=== PATIENT | male | born 1935 | race Caucasian/White ===

== ENCOUNTER 2018-02-21 06:35 | Day surgery (SDC) | payer MEDICARE, BC ==
[2018-02-21] MEDS ORDERED: Lactated Ringers 1,000 ML IV SCH (07:00)
[2018-02-21] MEDS ORDERED: Midazolam 1 MG/ML 2 ML SDV IV ONE (08:00)
[2018-02-21] MEDS ORDERED: Propofol 200 MG/20 ML SDV IV ONE (08:00)
--- NOTE | 2018-02-21 08:31 | PCM.HP ---
H&P History of Present Illness - General Date of Service: 02/21/18 Admit Problem/Dx: Admission Diagnosis/Problem Admission Diagnosis/Problem Colonoscopy Source of Information: Patient, Old Records History Limitations: Reports: No Limitations - History of Present Illness Initial Comments - Free Text/Narative: Here for colonoscopy for history of polyps - Related Data Allergies/Adverse Reactions: Allergies Allergy/AdvReac Type Severity Reaction Status Date / Time Penicillins Allergy Hives Verified 02/20/18 15:06 Home Medications: Home Meds Acetaminophen [Tylenol] 650 mg PO Q6H PRN 02/21/18 [History] Carboxymethylcellulose Sodium [Refresh Tears 0.5%] 1 drop EYEBOTH BID 02/21/18 [ History] Richards Flavor [Richards Concentrate] 1 cap PO DAILY 02/21/18 [History] Etodolac 400 mg PO BID 02/21/18 [History] Hydrochlorothiazide 25 mg PO DAILY 02/21/18 [History] Labetalol HCl [Labetalol] 200 mg PO BID 02/21/18 [History] Multivitamin [One Daily] 1 ea PO DAILY 02/21/18 [History] Omeprazole Magnesium [Prilosec Otc] 20 mg PO DAILY 02/21/18 [History] Tamsulosin [Flomax] 0.4 mg PO DAILY 02/21/18 [History] amLODIPine Besylate [Norvasc] 5 mg PO DAILY 02/21/18 [History] Past Medical History HEENT History: Reports: Glaucoma, Impaired Vision Cardiovascular History: Reports: High Cholesterol, Hypertension Respiratory History: Reports: None Gastrointestinal History: Reports: Colon Polyp, GERD Genitourinary History: Reports: BPH 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 Musculoskeletal History: Reports: Gout, Other (See Below) Other Musculoskeletal History: DJD OF ACROMIOCLAVICULAR JOINT; SHOULDER IMPINGEMENT SYNDROME, RIGHT Neurological History: Reports: None Psychiatric History: Reports: None Endocrine/Metabolic History: Reports: None Hematologic History: Reports: None Immunologic History: Reports: None Oncologic (Cancer) History: Reports: None Dermatologic History: Reports: None - Infectious Disease History Infectious Disease History: Reports: Mumps - Past Surgical History Head Surgeries/Procedures: Reports: None GI Surgical History: Reports: Colonoscopy, EGD Musculoskeletal Surgical History: Reports: Other (See Below) Social & Family History - Family History GI: Reports: None - Tobacco Use Smoking Status *Q: Former Smoker Years of Tobacco use: 20 - Caffeine Use Caffeine Use: Reports: Coffee - Recreational Drug Use Recreational Drug Use: No Drug Use in Last 12 Months: No H&P Review of Systems - Review of Systems: Review Of Systems: See Below Pulmonary: Reports: No Symptoms Cardiovascular: Reports: No Symptoms Gastrointestinal: Reports: No Symptoms Exam - Exam Exam: See Below - Vital Signs Vital Signs: Last Vital Signs Temp 978.4 F H 02/21/18 07:12 Pulse 55 L 02/21/18 07:12 Resp 18 02/21/18 07:12 BP 149/65 H 02/21/18 07:12 Pulse Ox 98 02/21/18 07:12 Weight: 111.13 kg - Exam General: Alert, Oriented Lungs: Clear to Auscultation, Normal Respiratory Effort Cardiovascular: Regular Rate, Regular Rhythm GI/Abdominal Exam: Soft, Non-Tender Problem List Initiated/Reviewed/Updated: Yes Orders Last 24hrs: Active Orders 24 hr Category Date Time Status Patient Status [ADT] Routine ADT 02/21/18 06:51 Active Patient to Empty Bladder [RC] ASDIRECTED Care 02/21/18 06:51 Active Verify Patient Consent Obtain [RC] ASDIRECTED Care 02/21/18 06:51 Active Nothing Per Oral Diet [DIET] Diet 02/21/18 Breakfast Ordered Lactated Ringers [Ringers, Lactated] 1,000 ml Med 02/21/18 07:00 Active IV ASDIRECTED Peripheral IV Insertion Adult [OM.PC] Routine Oth 02/21/18 06:51 Ordered Resuscitation Status Routine Resus Stat 02/21/18 06:51 Ordered Medication Orders Lactated Ringer's (Ringers, Lactated) 1,000 mls @ 125 mls/hr IV ASDIRECTED YESI Assessment/Plan Comment:: A) Hx Colon Polyps P) Ok to proceed with colonoscopy
--- NOTE | 2018-02-21 08:32 | PCM.OPNOTE ---
- General Post-Op/Procedure Note Date of Surgery/Procedure: 02/21/18 Operative Procedure(s): Colonoscopy Findings: Diverticulosis Pre Op Diagnosis: Hx Colon Polyps Post-Op Diagnosis: Same Anesthesia Technique: MAC Primary Surgeon: Jonah Smith Complications: None Condition: Good
--- NOTE | 2018-02-21 12:42 | OR ---
DATE OF OPERATION: 02/21/2018 SURGEON: Jonah Smith MD PREOPERATIVE DIAGNOSIS: History of colon polyps. POSTOPERATIVE DIAGNOSIS: Diverticulosis. PROCEDURE: Colonoscopy. ANESTHESIA: IV sedation. PROCEDURE IN DETAIL: The patient was brought to the procedure room, where he was placed on his left side and IV sedation administered. Digital rectal exam was performed, which was normal. Colonoscope was inserted and advanced to the level of the cecum without difficulty. Cecal position was confirmed by identifying the appendiceal lumen and the ileocecal valve. Prep was good and surfaces were well visualized. Upon withdrawing the scope, the ascending, transverse, and descending colon had a few scattered diverticula throughout. Sigmoid colon had multiple diverticula present. No polyps were seen. Rectum was normal and retroflexion was normal. Air was removed and the scope withdrawn. The patient tolerated the procedure well and returned to recovery in stable condition. No routine colon screening is required any longer because of his age. /[id number] TIFF/LAYO
== END 2018-02-21 09:40 | disposition home or self-care (01) ==
LOC: FB.SDS 06:35
PROVIDERS: ATTEND Surgery
DX: K57.30 Diverticulosis of large intestine without perforation or abscess without bleeding (principal); E78.00 Pure hypercholesterolemia, unspecified; I10 Essential (primary) hypertension; K21.9 Gastro-esophageal reflux disease without esophagitis; N40.0 Benign prostatic hyperplasia without lower urinary tract symptoms; M19.011 Primary osteoarthritis, right shoulder; M10.9 Gout, unspecified; E66.9 Obesity, unspecified; Z79.899 Other long term (current) drug therapy; Z88.0 Allergy status to penicillin; Z98.890 Other specified postprocedural states; Z87.891 Personal history of nicotine dependence
CPT/HCPCS: 00812; 45378; J2250; J2704; J7120

== ENCOUNTER 2019-02-14 09:52 | Inpatient (IN) | payer MEDICARE, BC ==
[2019-02-14] MEDS ORDERED: Lactated Ringers 1,000 ML IV ONE (10:00)
[2019-02-14] MEDS ORDERED: ceFAZolin 1 GM Vial IV ONE (10:00)
[2019-02-14] MEDS ORDERED: Ketorolac 30 MG/ML SDV IVPUSH ONE ×2 (10:00→20:33)
[2019-02-14] MEDS ORDERED: Succinylcholine 200 MG/10 ML MDV IV ONE (10:00)
[2019-02-14] MEDS ORDERED: Midazolam 1 MG/ML 2 ML SDV IV ONE (10:00)
[2019-02-14] MEDS ORDERED: Ondansetron 4 MG/2 ML SDV IVPUSH ONE (10:00)
[2019-02-14] MEDS ORDERED: Neostigmine Methylsulfate 10 MG/10 ML MDV IVPUSH ONE (10:00)
[2019-02-14] MEDS ORDERED: fentaNYL 100 MCG/2 ML SDV IV ONE (10:00)
[2019-02-14] MEDS ORDERED: Propofol 200 MG/20 ML SDV IV ONE (10:00)
[2019-02-14] MEDS ORDERED: Rocuronium 100 MG/10 ML MDV IV ONE (10:00)
[2019-02-14] MEDS ORDERED: Sugammadex Sodium 200 MG/2 ML VIAL IV ONE (10:00)
[2019-02-14] MEDS ORDERED: Glycopyrrolate 0.2 MG/ML 5 ML MDV IV ONE (10:00)
[2019-02-14] MEDS ORDERED: HYDROmorphone 2 MG/ML SDV IV ONE (10:00)
[2019-02-14] MEDS: Lactated Ringers 1,000 ML IV SCH ×2 (10:48→15:23)
[2019-02-14] MEDS ORDERED: metroNIDAZOLE/Normal Saline 100 ML IV ONE (13:00)
[2019-02-14] MEDS ORDERED: Ciprofloxacin in D5W 200 ML IV ONE (13:00)
--- NOTE | 2019-02-14 14:25 | PCM.OPNOTE ---
- General Post-Op/Procedure Note Date of Surgery/Procedure: 02/14/19 Operative Procedure(s): Lap to Open Josi Findings: Acute Cholecystitis and Cholelithiasis Pre Op Diagnosis: Same Post-Op Diagnosis: Same Anesthesia Technique: General ET Tube Primary Surgeon: Jonah Smith Anesthesia Provider: Michelle Baltazar Special Education Para Professional: Surjit Mota EBL in mLs: 250 Surgical Drain/Tube Type: Gallo Christine Round Drain Complications: None Condition: Good
[2019-02-14] MEDS: Morphine 2 MG/ML Syringe IVPUSH PRN ×5 (16:27→22:55)
--- NOTE | 2019-02-14 18:03 | OR ---
DATE OF OPERATION: 02/14/2019 SURGEON: Jonah Smith MD PREOPERATIVE DIAGNOSES: Acute cholecystitis and cholelithiasis. POSTOPERATIVE DIAGNOSES: Acute cholecystitis and cholelithiasis with Adhesions. PROCEDURE: Attempted laparoscopic converted to open cholecystectomy with Adhesiolysis. ELEMENT WINDING MACHINE TENDER: Surjit Mota MD ANESTHESIA: General. PROCEDURE IN DETAIL: The patient was brought to the operating room where general endotracheal anesthesia was administered. The abdomen was prepped with ChloraPrep and draped sterilely. An infraumbilical incision was made and extended into the peritoneal cavity without difficulty. The Noé cannula later was introduced and pneumoperitoneum obtained. The remaining three 5 mm ports were placed in the usual positions. The patient was placed in reverse Trendelenburg position and rotated to his left. The gallbladder was densely covered with omentum and this was taken down with blunt dissection with minimal oozing. It took over 20 minutes to expose the gallbladder. The gallbladder was firm and could not be grasped well, so this was decompressed with a needle and trocar. Yellowish thick bile (80 ml) was obtained and sent for culture. The gallbladder was grasped and retracted cephalad. Tedious dissection was undertaken to identify the base of the gallbladder which was very thick and densely covered with a thickened peritoneum. I was able to isolate the cystic artery which was doubly clipped proximally and once distally and then transected. I could work around the base of the gallbladder, but was unable to define any structure. At that time, I decided to open. Dr. Surjit Mota came into assist at that point. A right subcostal incision was made and extended through the rectus muscle into the peritoneal cavity. Pinon retractor system was used for retraction. The gallbladder was grasped and electrocautery used to dissect from the top down. Some oozing occurred in liver bed that was controlled with electrocautery. As I got to the base of the gallbladder, it was firm and again structures were not clearly identified. Therefore, I decided to open the gallbladder and many small gallstones were removed. By extending the incision down to the neck of the gallbladder, there was not a patent cystic duct that could be identified. Therefore, the gallbladder was transected at the level of the base. There were 2 small blood vessels clamped and tied with 0 Vicryl at that level. The remnant neck of the gallbladder was oversewn with [id number] 2-0 Vicryl. There was no bile seen during any portion of the procedure. Hemostasis was assured. The wound was thoroughly irrigated. All stones that had spilled were removed. A 0.25- inch round Davol drain was brought out through the right lateral incision and secured to the skin with silk and tucked in the bed of the liver adjacent to the gallbladder stump. The wound was closed and each rectus muscle layer was closed with running #1 Vicryl. The skin was closed with roque. Umbilical fascia was closed with [id number] #0 Vicryl and skin closed with roque. Sterile dressings were applied. The patient tolerated the procedure well. Estimated blood loss 250 mL. He returned to postanesthesia in stable condition. Cultures were obtained. /[id number] TIFF/LAYO MTDD
[2019-02-14] MEDS: metroNIDAZOLE/Normal Saline 500 MG in Premix Bag 1 BAG IV SCH (22:54)
[2019-02-14] MEDS ORDERED: Lidocaine 2% Jelly 30 ML Tube MUCMEM SCH (23:40)
[2019-02-15] MEDS: Lactated Ringers 1,000 ML IV SCH ×5 (00:03→18:23)
[2019-02-15] MEDS ORDERED: Lidocaine 2% HCl 6 ML JEL.PF.APP ONE (00:07)
[2019-02-15] MEDS: Ciprofloxacin in D5W 400 MG in Premix Bag 1 BAG IV SCH ×4 (00:24→14:39)
[2019-02-15] MEDS: Morphine 2 MG/ML Syringe IVPUSH PRN ×7 (01:07→20:31)
[2019-02-15] MEDS: Ketorolac 30 MG/ML SDV IVPUSH SCH ×4 (03:05→22:01)
[2019-02-15] MEDS: metroNIDAZOLE/Normal Saline 500 MG in Premix Bag 1 BAG IV SCH ×3 (05:15→22:57)
--- NOTE | 2019-02-15 07:58 | PCM.PN ---
- General Info Date of Service: 02/15/19 Admission Dx/Problem (Free Text): Cholecystectomy - Review of Systems Systems Review Comment:: Complains of pain at drain site but otherwise pain mild Has had difficulty voiding and unable to place christensen - patient has voided in small amounts during the night - Patient Data Vitals - Most Recent: Last Vital Signs Temp 98 F 02/15/19 03:15 Pulse 57 L 02/15/19 03:15 Resp 20 02/15/19 03:15 BP 143/69 H 02/15/19 03:15 Pulse Ox 95 02/15/19 03:15 Weight - Most Recent: 231 lb I&O - Last 24 Hours: Intake & Output 02/14/19 02/15/19 02/15/19 22:59 06:59 14:59 Output Total 37 290 Balance -37 -290 Lab Results Last 24 Hours: Laboratory Results - last 24 hr 02/15/19 02/15/19 Range/Units 06:18 06:18 WBC 6.0 (4.5-12.0) X10-3/uL RBC 3.59 L (4.30-5.75) x10(6)uL Hgb 11.9 L (13.5-17.8) g/dL Hct 33.5 (30.0-51.3) % MCV 93.5 (80-96) fL MCH 33.1 (27.7-33.6) pg MCHC 35.3 (32.2-35.4) g/dL RDW 12.2 (11.5-15.5) % Plt Count 275 (125-369) X10(3)uL MPV 7.2 L (7.4-10.4) fL Neut % (Auto) 65.3 (46-82) % Lymph % (Auto) 21.3 (13-37) % [place] % (Auto) 11.0 (4-12) % Eos % (Auto) 2 (1.0-5.0) % Baso % (Auto) 1 (0-2) % Neut # (Auto) 3.9 (1.6-8.3) # Lymph # (Auto) 1.3 (0.6-5.0) # [place] # (Auto) 0.7 (0.0-1.3) # Eos # (Auto) 0.1 (0.0-0.8) # Baso # (Auto) 0.0 (0.0-0.2) # Sodium 140 (135-145) mmol/L Potassium 4.6 (3.5-5.3) mmol/L Chloride 104 (100-110) mmol/L Carbon Dioxide 30 (21-32) mmol/L BUN 22 H (7-18) mg/dL Creatinine 1.4 H (0.70-1.30) mg/dL Est Cr Clr Drug Dosing 43.88 mL/min Estimated GFR (MDRD) 48 L (>60) BUN/Creatinine Ratio 15.7 (9-20) Glucose 113 (80-116) mg/dL Calcium 8.5 L (8.6-10.2) mg/dL Total Bilirubin 0.7 (0.1-1.3) mg/dL AST 48 H (5-25) IU/L ALT 83 H (12-36) U/L Alkaline Phosphatase 148 H (56-112) IU/L Total Protein 6.2 (6.0-8.0) g/dL Albumin 2.9 L (3.2-4.6) g/dL Globulin 3.3 g/dL Albumin/Globulin Ratio 0.9 Lei Results Last 24 Hours: Microbiology 02/14/19 12:20 Gram Stain - Final Gallbladder Med Orders - Current: Current Medications Hydrocodone Bitart/Acetaminophen ([place] 325-5 Mg) 1 tab PO Q4H PRN PRN Reason: Pain (mild 1-3) Enoxaparin Sodium (Lovenox) 0 mg SUBCUT Q24H [facility] Lactated Ringer's (Ringers, Lactated) 1,000 mls @ 125 mls/hr IV ASDIRECTED [facility] Last Infusion: 02/14/19 18:48 Dose: Infused Lactated Ringer's (Ringers, Lactated) 1,000 mls @ 125 mls/hr IV ASDIRECTED [facility] Last Infusion: 02/15/19 07:01 Dose: 500 mls/hr Ciprofloxacin/Dextrose 400 mg/ (Premix) 200 mls @ 200 mls/hr IV Q12H [facility] Last Admin: 02/15/19 00:24 Dose: 200 mls/hr Metronidazole 500 mg/ Premix 100 mls @ 100 mls/hr IV Q8H [facility] Last Admin: 02/15/19 05:15 Dose: 100 mls/hr Ketorolac Tromethamine (Toradol) 30 mg IVPUSH Q6H YESI Stop: 02/19/19 21:46 Last Admin: 02/15/19 03:05 Dose: 30 mg Lidocaine HCl (Xylocaine 2% Jelly) 6 ml MUCMEM ASDIRECTED YESI Stop: 02/15/19 23:41 Morphine Sulfate (Morphine) 2 mg IVPUSH Q1H PRN PRN Reason: Abdominal Pain Last Admin: 02/15/19 05:14 Dose: 2 mg Discontinued Medications Ketorolac Tromethamine (Toradol) 30 mg IVPUSH ONETIME ONE Stop: 02/14/19 20:34 Last Admin: 02/14/19 20:40 Dose: 30 mg Lidocaine HCl (Glydo) Confirm Administered Dose 6 ml .ROUTE .STK-MED ONE Stop: 02/15/19 00:08 Last Admin: 02/14/19 23:40 Dose: 12 ml - Problem List Review Problem List Initiated/Reviewed/Updated: Yes - Assessment Assessment:: POD#1 open cholecystectomy urinary retention - Plan Plan:: encouraged ambulation - will observe
[2019-02-15] MEDS: Acetaminophen/HYDROcodone 325-5 MG Tab PO PRN ×3 (08:20→23:01)
[2019-02-15] MEDS: Enoxaparin 40 MG/0.4 ML Syringe SUBCUT SCH (11:40)
[2019-02-16] MEDS: Ciprofloxacin in D5W 400 MG in Premix Bag 1 BAG IV SCH ×4 (01:58→13:10)
[2019-02-16] MEDS: Ketorolac 30 MG/ML SDV IVPUSH SCH ×4 (03:18→21:21)
[2019-02-16] MEDS: Lactated Ringers 1,000 ML IV SCH ×2 (04:36→17:06)
[2019-02-16] MEDS: Acetaminophen/HYDROcodone 325-5 MG Tab PO PRN ×3 (04:57→21:34)
[2019-02-16] MEDS: metroNIDAZOLE/Normal Saline 500 MG in Premix Bag 1 BAG IV SCH ×3 (06:24→23:00)
--- NOTE | 2019-02-16 08:44 | PCM.SURGPN ---
- General Info Date of Service: 02/16/19 POD#: 2 Functional Status: Reports: Pain Controlled, Ambulating, Urinating - Review of Systems General: Reports: No Symptoms Pulmonary: Reports: No Symptoms Cardiovascular: Reports: No Symptoms Gastrointestinal: Denies: Flatus - Patient Data Vitals - Most Recent: Last Vital Signs Temp 98.1 F 02/16/19 05:00 Pulse 66 02/16/19 05:00 Resp 20 02/16/19 05:00 BP 133/66 02/16/19 05:00 Pulse Ox 93 L 02/16/19 05:00 Weight - Most Recent: 104.78 kg I&O - Last 24 Hours: Intake & Output 02/15/19 02/16/19 02/16/19 22:59 06:59 14:59 Intake Total 730 300 Output Total 380 675 40 Balance 350 -375 -40 Lei Results Last 24 Hrs: Microbiology 02/14/19 12:20 Gram Stain - Final Gallbladder Routine Culture - Preliminary NO GROWTH AFTER 1 DAY Med Orders - Current: Current Medications Hydrocodone Bitart/Acetaminophen ([place] 325-5 Mg) 1 tab PO Q4H PRN PRN Reason: Pain (mild 1-3) Last Admin: 02/16/19 04:57 Dose: 1 tab Enoxaparin Sodium (Lovenox) 40 mg SUBCUT DAILY [facility] Last Admin: 02/15/19 11:40 Dose: 40 mg Lactated Ringer's (Ringers, Lactated) 1,000 mls @ 125 mls/hr IV ASDIRECTED [facility] Last Admin: 02/16/19 04:36 Dose: 125 mls/hr Lactated Ringer's (Ringers, Lactated) 1,000 mls @ 125 mls/hr IV ASDIRECTED [facility] Last Infusion: 02/15/19 07:01 Dose: 500 mls/hr Ciprofloxacin/Dextrose 400 mg/ (Premix) 200 mls @ 200 mls/hr IV Q12H [facility] Last Admin: 02/16/19 01:58 Dose: 200 mls/hr Metronidazole 500 mg/ Premix 100 mls @ 100 mls/hr IV Q8H [facility] Last Admin: 02/16/19 06:24 Dose: 100 mls/hr Ketorolac Tromethamine (Toradol) 30 mg IVPUSH Q6H [facility] Stop: 02/19/19 21:46 Last Admin: 02/16/19 03:18 Dose: 30 mg Morphine Sulfate (Morphine) 2 mg IVPUSH Q1H PRN PRN Reason: Abdominal Pain Last Admin: 02/15/19 20:31 Dose: 2 mg Discontinued Medications Ketorolac Tromethamine (Toradol) 30 mg IVPUSH ONETIME ONE Stop: 02/14/19 20:34 Last Admin: 02/14/19 20:40 Dose: 30 mg Lidocaine HCl (Glydo) Confirm Administered Dose 6 ml .ROUTE .STK-MED ONE Stop: 02/15/19 00:08 Last Admin: 02/14/19 23:40 Dose: 12 ml Lidocaine HCl (Xylocaine 2% Jelly) 6 ml MUCMEM ASDIRECTED [facility] Stop: 02/15/19 23:41 - Exam Wound/Incisions: Healing Well, Dressing Dry and Intact, Drainage (serous from [facility] ) Lungs: Clear to Auscultation, Normal Respiratory Effort Cardiovascular: Regular Rate, Regular Rhythm GI/Abdominal Exam: Soft, Non-Tender, Distended - Problem List Review Problem List Initiated/Reviewed/Updated: Yes - My Orders Last 24 Hours: Active Orders 24 hr Category Date Time Status Enoxaparin [Lovenox] Med 02/15/19 10:00 Active 40 mg SUBCUT DAILY Medication Orders Hydrocodone Bitart/Acetaminophen ([place] 325-5 Mg) 1 tab PO Q4H PRN PRN Reason: Pain (mild 1-3) Last Admin: 02/16/19 04:57 Dose: 1 tab Admin: 02/15/19 23:01 Dose: 1 tab Admin: 02/15/19 16:45 Dose: 1 tab Admin: 02/15/19 08:20 Dose: 1 tab Enoxaparin Sodium (Lovenox) 40 mg SUBCUT DAILY [facility] Last Admin: 02/15/19 11:40 Dose: 40 mg Lactated Ringer's (Ringers, Lactated) 1,000 mls @ 125 mls/hr IV ASDIRECTED [facility] Last Admin: 02/16/19 04:36 Dose: 125 mls/hr Infusion: 02/16/19 02:23 Dose: 125 mls/hr Admin: 02/15/19 18:23 Dose: 125 mls/hr Infusion: 02/15/19 16:11 Dose: 125 mls/hr Admin: 02/15/19 08:11 Dose: 125 mls/hr Infusion: 02/14/19 18:48 Dose: 125 mls/hr Admin: 02/14/19 10:48 Dose: 125 mls/hr Lactated Ringer's (Ringers, Lactated) 1,000 mls @ 125 mls/hr IV ASDIRECTED [facility] Last Infusion: 02/15/19 07:01 Dose: 500 mls/hr Admin: 02/15/19 03:08 Dose: 125 mls/hr Infusion: 02/15/19 01:05 Dose: 75 mls/hr Admin: 02/15/19 00:06 Dose: 125 mls/hr Infusion: 02/14/19 23:23 Dose: 125 mls/hr Admin: 02/14/19 15:23 Dose: 125 mls/hr Ciprofloxacin/Dextrose 400 mg/ (Premix) 200 mls @ 200 mls/hr IV Q12H [facility] Last Admin: 02/16/19 01:58 Dose: 200 mls/hr Infusion: 02/15/19 15:39 Dose: 200 mls/hr Admin: 02/15/19 14:39 Dose: 200 mls/hr Infusion: 02/15/19 01:24 Dose: 200 mls/hr Admin: 02/15/19 00:24 Dose: 200 mls/hr Metronidazole 500 mg/ Premix 100 mls @ 100 mls/hr IV Q8H [facility] Last Admin: 02/16/19 06:24 Dose: 100 mls/hr Infusion: 02/15/19 23:57 Dose: 100 mls/hr Admin: 02/15/19 22:57 Dose: 100 mls/hr Infusion: 02/15/19 16:49 Dose: 100 mls/hr Admin: 02/15/19 15:49 Dose: 100 mls/hr Infusion: 02/15/19 06:15 Dose: 100 mls/hr Admin: 02/15/19 05:15 Dose: 100 mls/hr Infusion: 02/14/19 23:54 Dose: 100 mls/hr Admin: 02/14/19 22:54 Dose: 100 mls/hr Ketorolac Tromethamine (Toradol) 30 mg IVPUSH Q6H [facility] Stop: 02/19/19 21:46 Last Admin: 02/16/19 03:18 Dose: 30 mg Admin: 02/15/19 22:01 Dose: 30 mg Admin: 02/15/19 14:45 Dose: 30 mg Admin: 02/15/19 08:22 Dose: 30 mg Admin: 02/15/19 03:05 Dose: 30 mg Morphine Sulfate (Morphine) 2 mg IVPUSH Q1H PRN PRN Reason: Abdominal Pain Last Admin: 02/15/19 20:31 Dose: 2 mg Admin: 02/15/19 16:46 Dose: 2 mg Admin: 02/15/19 11:39 Dose: 2 mg Admin: 02/15/19 08:26 Dose: 2 mg Admin: 02/15/19 05:14 Dose: 2 mg Admin: 02/15/19 04:13 Dose: 2 mg Admin: 02/15/19 01:07 Dose: 2 mg Admin: 02/14/19 22:55 Dose: 2 mg Admin: 02/14/19 21:40 Dose: 2 mg Admin: 02/14/19 19:58 Dose: 2 mg Admin: 02/14/19 18:34 Dose: 2 mg Admin: 02/14/19 16:27 Dose: 2 mg - Assessment Assessment (Free Text/Narrative):: Doing well; post op ileus - Plan Plan (Free Text/Narrative):: Cont as is
[2019-02-16] MEDS ORDERED: Morphine 2 MG/ML Syringe IVPUSH PRN (08:46)
[2019-02-16] MEDS: Enoxaparin 40 MG/0.4 ML Syringe SUBCUT SCH (09:08)
[2019-02-17] MEDS: Ciprofloxacin in D5W 400 MG in Premix Bag 1 BAG IV SCH ×4 (00:47→13:16)
[2019-02-17] MEDS ORDERED: Promethazine 12.5 MG in Sodium Chloride 0.9% 50 ML IV PRN (02:23)
[2019-02-17] MEDS ORDERED: Sodium Chloride 0.9% 500 ML IV ONE (02:26)
[2019-02-17] MEDS: Ketorolac 30 MG/ML SDV IVPUSH SCH ×4 (03:05→21:37)
[2019-02-17] MEDS: metroNIDAZOLE/Normal Saline 500 MG in Premix Bag 1 BAG IV SCH ×3 (06:28→21:38)
[2019-02-17] MEDS: Lactated Ringers 1,000 ML IV SCH ×2 (06:30→19:03)
[2019-02-17] MEDS: Enoxaparin 40 MG/0.4 ML Syringe SUBCUT SCH (08:26)
[2019-02-17] MEDS ORDERED: Ondansetron 4 MG/2 ML SDV IVPUSH PRN (11:22)
--- NOTE | 2019-02-17 11:26 | PCM.SURGPN ---
- General Info Date of Service: 02/17/19 POD#: 3 Functional Status: Reports: Pain Controlled, Ambulating, Urinating - Review of Systems Gastrointestinal: Reports: Nausea, Vomiting Genitourinary: Reports: No Symptoms - Patient Data Vitals - Most Recent: Last Vital Signs Temp 97.7 F 02/17/19 05:23 Pulse 86 02/17/19 05:23 Resp 20 02/17/19 05:23 BP 133/81 02/17/19 05:23 Pulse Ox 95 02/17/19 05:23 Weight - Most Recent: 104.78 kg I&O - Last 24 Hours: Intake & Output 02/16/19 02/17/19 02/17/19 22:59 06:59 14:59 Intake Total 900 1500 Output Total 150 450 450 Balance 750 1050 -450 Lab Results Last 24 Hrs: Laboratory Results - last 24 hr 02/17/19 02/17/19 Range/Units 06:20 06:20 WBC 5.9 (4.5-12.0) X10-3/uL RBC 3.80 L (4.30-5.75) x10(6)uL Hgb 12.3 L (13.5-17.8) g/dL Hct 35.3 (30.0-51.3) % MCV 93.1 (80-96) fL MCH 32.3 (27.7-33.6) pg MCHC 34.7 (32.2-35.4) g/dL RDW 11.9 (11.5-15.5) % Plt Count 294 (125-369) X10(3)uL MPV 7.7 (7.4-10.4) fL Neut % (Auto) 65.2 (46-82) % Lymph % (Auto) 18.3 (13-37) % [place] % (Auto) 13.0 H (4-12) % Eos % (Auto) 3 (1.0-5.0) % Baso % (Auto) 0 (0-2) % Neut # (Auto) 3.8 (1.6-8.3) # Lymph # (Auto) 1.1 (0.6-5.0) # [place] # (Auto) 0.8 (0.0-1.3) # Eos # (Auto) 0.2 (0.0-0.8) # Baso # (Auto) 0.0 (0.0-0.2) # Sodium 138 (135-145) mmol/L Potassium 4.0 (3.5-5.3) mmol/L Chloride 99 L D (100-110) mmol/L Carbon Dioxide 32 (21-32) mmol/L BUN 22 H (7-18) mg/dL Creatinine 1.3 (0.70-1.30) mg/dL Est Cr Clr Drug Dosing 47.26 mL/min Estimated GFR (MDRD) 53 L (>60) BUN/Creatinine Ratio 16.9 (9-20) Glucose 116 (80-116) mg/dL Calcium 8.9 (8.6-10.2) mg/dL Total Bilirubin 0.7 (0.1-1.3) mg/dL AST 39 H D (5-25) IU/L ALT 58 H D (12-36) U/L Alkaline Phosphatase 123 H (56-112) IU/L Total Protein 6.7 (6.0-8.0) g/dL Albumin 2.9 L (3.2-4.6) g/dL Globulin 3.8 g/dL Albumin/Globulin Ratio 0.8 Lei Results Last 24 Hrs: Microbiology 02/14/19 12:20 Gram Stain - Final Gallbladder Routine Culture - Preliminary Gram Positive Cocci Med Orders - Current: Current Medications Hydrocodone Bitart/Acetaminophen ([place] 325-5 Mg) 1 tab PO Q4H PRN PRN Reason: Pain (mild 1-3) Last Admin: 02/16/19 21:34 Dose: 1 tab Enoxaparin Sodium (Lovenox) 40 mg SUBCUT DAILY [facility] Last Admin: 02/17/19 08:26 Dose: 40 mg Lactated Ringer's (Ringers, Lactated) 1,000 mls @ 100 mls/hr IV ASDIRECTED [facility] Last Admin: 02/17/19 06:30 Dose: 100 mls/hr Ciprofloxacin/Dextrose 400 mg/ (Premix) 200 mls @ 200 mls/hr IV Q12H [facility] Last Admin: 02/17/19 00:47 Dose: 200 mls/hr Metronidazole 500 mg/ Premix 100 mls @ 100 mls/hr IV Q8H [facility] Last Admin: 02/17/19 06:28 Dose: 100 mls/hr Ketorolac Tromethamine (Toradol) 30 mg IVPUSH Q6H [facility] Stop: 02/19/19 21:46 Last Admin: 02/17/19 08:28 Dose: 30 mg Metoclopramide HCl (Reglan) 10 mg IVPUSH Q6H [facility] Ondansetron HCl (Zofran) 4 mg IVPUSH Q4H PRN PRN Reason: Nausea/Vomiting Discontinued Medications Lactated Ringer's (Ringers, Lactated) 1,000 mls @ 125 mls/hr IV ASDIRECTED [facility] Last Infusion: 02/16/19 08:55 Dose: 100 mls/hr Promethazine HCl 12.5 mg/ (Sodium Chloride) 50.5 mls @ 200 mls/hr IV Q6H PRN PRN Reason: Nausea/Vomiting Last Admin: 02/17/19 02:53 Dose: 200 mls/hr Sodium Chloride (Normal Saline) 500 mls @ 250 mls/hr IV ONETIME ONE Stop: 02/17/19 04:25 Last Admin: 02/17/19 02:49 Dose: 250 mls/hr Ketorolac Tromethamine (Toradol) 30 mg IVPUSH ONETIME ONE Stop: 02/14/19 20:34 Last Admin: 02/14/19 20:40 Dose: 30 mg Lidocaine HCl (Glydo) Confirm Administered Dose 6 ml .ROUTE .STK-MED ONE Stop: 02/15/19 00:08 Last Admin: 02/14/19 23:40 Dose: 12 ml Lidocaine HCl (Xylocaine 2% Jelly) 6 ml MUCMEM ASDIRECTED [facility] Stop: 02/15/19 23:41 Morphine Sulfate (Morphine) 2 mg IVPUSH Q1H PRN PRN Reason: Abdominal Pain Last Admin: 02/15/19 20:31 Dose: 2 mg Morphine Sulfate (Morphine) 1 mg IVPUSH Q2H PRN PRN Reason: Abdominal Pain Last Admin: 02/17/19 05:03 Dose: 1 mg - Exam Wound/Incisions: Healing Well, Dressing Dry and Intact Lungs: Clear to Auscultation, Normal Respiratory Effort GI/Abdominal Exam: Non-Tender, Distended - Problem List Review Problem List Initiated/Reviewed/Updated: Yes - My Orders Last 24 Hours: Active Orders 24 hr Category Date Time Status No Tray Needed Diet [DIET] Diet 02/16/19 Dinner Ordered Metoclopramide [Reglan] Med 02/17/19 11:30 Ordered 10 mg IVPUSH Q6H Ondansetron [Zofran] Med 02/17/19 11:22 Ordered 4 mg IVPUSH Q4H PRN Medication Orders Hydrocodone Bitart/Acetaminophen ([place] 325-5 Mg) 1 tab PO Q4H PRN PRN Reason: Pain (mild 1-3) Last Admin: 02/16/19 21:34 Dose: 1 tab Admin: 02/16/19 16:48 Dose: 1 tab Admin: 02/16/19 04:57 Dose: 1 tab Admin: 02/15/19 23:01 Dose: 1 tab Admin: 02/15/19 16:45 Dose: 1 tab Admin: 02/15/19 08:20 Dose: 1 tab Enoxaparin Sodium (Lovenox) 40 mg SUBCUT DAILY [facility] Last Admin: 02/17/19 08:26 Dose: 40 mg Admin: 02/16/19 09:08 Dose: 40 mg Admin: 02/15/19 11:40 Dose: 40 mg Lactated Ringer's (Ringers, Lactated) 1,000 mls @ 100 mls/hr IV ASDIRECTED [facility] Last Admin: 02/17/19 06:30 Dose: 100 mls/hr Infusion: 02/17/19 03:06 Dose: 100 mls/hr Infusion: 02/16/19 17:06 Dose: 100 mls/hr Admin: 02/16/19 17:06 Dose: 500 mls/hr Infusion: 02/15/19 08:03 Dose: 500 mls/hr Infusion: 02/15/19 07:01 Dose: 500 mls/hr Admin: 02/15/19 03:08 Dose: 125 mls/hr Infusion: 02/15/19 01:05 Dose: 75 mls/hr Admin: 02/15/19 00:06 Dose: 125 mls/hr Infusion: 02/14/19 23:23 Dose: 125 mls/hr Admin: 02/14/19 15:23 Dose: 125 mls/hr Ciprofloxacin/Dextrose 400 mg/ (Premix) 200 mls @ 200 mls/hr IV Q12H [facility] Last Admin: 02/17/19 00:47 Dose: 200 mls/hr Infusion: 02/16/19 14:10 Dose: 200 mls/hr Admin: 02/16/19 13:10 Dose: 200 mls/hr Infusion: 02/16/19 02:58 Dose: 200 mls/hr Admin: 02/16/19 01:58 Dose: 200 mls/hr Infusion: 02/15/19 15:39 Dose: 200 mls/hr Admin: 02/15/19 14:39 Dose: 200 mls/hr Infusion: 02/15/19 01:24 Dose: 200 mls/hr Admin: 02/15/19 00:24 Dose: 200 mls/hr Metronidazole 500 mg/ Premix 100 mls @ 100 mls/hr IV Q8H [facility] Last Admin: 02/17/19 06:28 Dose: 100 mls/hr Infusion: 02/17/19 00:00 Dose: 100 mls/hr Admin: 02/16/19 23:00 Dose: 100 mls/hr Infusion: 02/16/19 15:12 Dose: 100 mls/hr Admin: 02/16/19 14:12 Dose: 100 mls/hr Infusion: 02/16/19 07:24 Dose: 100 mls/hr Admin: 02/16/19 06:24 Dose: 100 mls/hr Infusion: 02/15/19 23:57 Dose: 100 mls/hr Admin: 02/15/19 22:57 Dose: 100 mls/hr Infusion: 02/15/19 16:49 Dose: 100 mls/hr Admin: 02/15/19 15:49 Dose: 100 mls/hr Infusion: 02/15/19 06:15 Dose: 100 mls/hr Admin: 02/15/19 05:15 Dose: 100 mls/hr Infusion: 02/14/19 23:54 Dose: 100 mls/hr Admin: 02/14/19 22:54 Dose: 100 mls/hr Ketorolac Tromethamine (Toradol) 30 mg IVPUSH Q6H [facility] Stop: 02/19/19 21:46 Last Admin: 02/17/19 08:28 Dose: 30 mg Admin: 02/17/19 03:05 Dose: 30 mg Admin: 02/16/19 21:21 Dose: 30 mg Admin: 02/16/19 15:31 Dose: 30 mg Admin: 02/16/19 09:11 Dose: 30 mg Admin: 02/16/19 03:18 Dose: 30 mg Admin: 02/15/19 22:01 Dose: 30 mg Admin: 02/15/19 14:45 Dose: 30 mg Admin: 02/15/19 08:22 Dose: 30 mg Admin: 02/15/19 03:05 Dose: 30 mg Metoclopramide HCl (Reglan) 10 mg IVPUSH Q6H [facility] Ondansetron HCl (Zofran) 4 mg IVPUSH Q4H PRN PRN Reason: Nausea/Vomiting - Assessment Assessment (Free Text/Narrative):: Post op ileus - Plan Plan (Free Text/Narrative):: Add Zofran and Reglan, keep NPO Discontinue Morphine
[2019-02-17] MEDS: Metoclopramide 10 MG/2 ML SDV IVPUSH SCH ×2 (11:43→17:16)
[2019-02-17] MEDS ORDERED: Sodium Chloride 0.9% 10 ML Syringe FLUSH PRN (15:53)
[2019-02-18] MEDS: Metoclopramide 10 MG/2 ML SDV IVPUSH SCH ×4 (00:40→17:35)
[2019-02-18] MEDS: Ciprofloxacin in D5W 400 MG in Premix Bag 1 BAG IV SCH ×4 (00:41→13:15)
[2019-02-18] MEDS: Ketorolac 30 MG/ML SDV IVPUSH SCH ×4 (02:42→20:58)
[2019-02-18] MEDS: Lactated Ringers 1,000 ML IV SCH (05:00)
[2019-02-18] MEDS: metroNIDAZOLE/Normal Saline 500 MG in Premix Bag 1 BAG IV SCH ×3 (05:57→22:43)
[2019-02-18] MEDS: Enoxaparin 40 MG/0.4 ML Syringe SUBCUT SCH (08:43)
[2019-02-18] MEDS ORDERED: Dextrose 5%-0.9% NaCl with KCl 1,000 ML IV SCH (10:30)
--- NOTE | 2019-02-18 10:44 | PCM.SURGPN ---
- General Info Date of Service: 02/18/19 POD#: 4 Functional Status: Reports: Pain Controlled, Ambulating, Urinating - Review of Systems General: Reports: No Symptoms Pulmonary: Reports: No Symptoms Cardiovascular: Reports: No Symptoms Gastrointestinal: Reports: No Symptoms. Denies: Abdominal Pain, Nausea, Vomiting - Patient Data Vitals - Most Recent: Last Vital Signs Temp 98.0 F 02/17/19 22:34 Pulse 98 02/17/19 22:34 Resp 20 02/17/19 22:34 BP 104/74 02/17/19 22:34 Pulse Ox 94 L 02/17/19 22:34 Weight - Most Recent: 104.78 kg I&O - Last 24 Hours: Intake & Output 02/17/19 02/18/19 02/18/19 22:59 06:59 14:59 Intake Total 1440 1080 Output Total 200 220 225 Balance 1240 860 -225 Med Orders - Current: Current Medications Hydrocodone Bitart/Acetaminophen ([place] 325-5 Mg) 1 tab PO Q4H PRN PRN Reason: Pain (mild 1-3) Last Admin: 02/16/19 21:34 Dose: 1 tab Enoxaparin Sodium (Lovenox) 40 mg SUBCUT DAILY [facility] Last Admin: 02/18/19 08:43 Dose: 40 mg Ciprofloxacin/Dextrose 400 mg/ (Premix) 200 mls @ 200 mls/hr IV Q12H [facility] Last Admin: 02/18/19 00:41 Dose: 200 mls/hr Metronidazole 500 mg/ Premix 100 mls @ 100 mls/hr IV Q8H [facility] Last Admin: 02/18/19 05:57 Dose: 100 mls/hr Potassium Chloride/Dextrose/Sod Cl (D5 Ns With 20 Meq Kcl) 1,000 mls @ 125 mls/ hr IV ASDIRECTED [facility] Ketorolac Tromethamine (Toradol) 30 mg IVPUSH Q6H [facility] Stop: 02/19/19 21:46 Last Admin: 02/18/19 08:39 Dose: 30 mg Metoclopramide HCl (Reglan) 5 mg IVPUSH Q6H [facility] Last Admin: 02/18/19 05:58 Dose: 5 mg Ondansetron HCl (Zofran) 4 mg IVPUSH Q4H PRN PRN Reason: Nausea/Vomiting Last Admin: 02/17/19 13:38 Dose: 4 mg Sodium Chloride (Saline Flush) 10 ml FLUSH ASDIRECTED PRN PRN Reason: Keep Vein Open Discontinued Medications Lactated Ringer's (Ringers, Lactated) 1,000 mls @ 125 mls/hr IV ASDIRECTED [facility] Last Infusion: 02/16/19 08:55 Dose: 100 mls/hr Lactated Ringer's (Ringers, Lactated) 1,000 mls @ 125 mls/hr IV ASDIRECTED [facility] Last Admin: 02/18/19 05:00 Dose: 125 mls/hr Promethazine HCl 12.5 mg/ (Sodium Chloride) 50.5 mls @ 200 mls/hr IV Q6H PRN PRN Reason: Nausea/Vomiting Last Admin: 02/17/19 02:53 Dose: 200 mls/hr Sodium Chloride (Normal Saline) 500 mls @ 250 mls/hr IV ONETIME ONE Stop: 02/17/19 04:25 Last Admin: 02/17/19 02:49 Dose: 250 mls/hr Ketorolac Tromethamine (Toradol) 30 mg IVPUSH ONETIME ONE Stop: 02/14/19 20:34 Last Admin: 02/14/19 20:40 Dose: 30 mg Lidocaine HCl (Glydo) Confirm Administered Dose 6 ml .ROUTE .STK-MED ONE Stop: 02/15/19 00:08 Last Admin: 02/14/19 23:40 Dose: 12 ml Lidocaine HCl (Xylocaine 2% Jelly) 6 ml MUCMEM ASDIRECTED [facility] Stop: 02/15/19 23:41 Metoclopramide HCl (Reglan) 10 mg IVPUSH Q6H [facility] Last Admin: 02/17/19 17:16 Dose: 10 mg Morphine Sulfate (Morphine) 2 mg IVPUSH Q1H PRN PRN Reason: Abdominal Pain Last Admin: 02/15/19 20:31 Dose: 2 mg Morphine Sulfate (Morphine) 1 mg IVPUSH Q2H PRN PRN Reason: Abdominal Pain Last Admin: 02/17/19 05:03 Dose: 1 mg - Exam Wound/Incisions: Healing Well, Dressing Dry and Intact Lungs: Clear to Auscultation, Normal Respiratory Effort GI/Abdominal Exam: Normal Bowel Sounds, Soft, Non-Tender, Distended (minimal, much better) - Problem List Review Problem List Initiated/Reviewed/Updated: Yes - My Orders Last 24 Hours: Active Orders 24 hr Category Date Time Status Dextrose 5%-0.9% NaCl with KCl [D5 NS with 20 mEq KCl] Med 02/18/19 10:30 Active 1,000 ml IV ASDIRECTED Metoclopramide [Reglan] Med 02/18/19 00:01 Active 5 mg IVPUSH Q6H Ondansetron [Zofran] Med 02/17/19 11:22 Active 4 mg IVPUSH Q4H PRN Sodium Chloride 0.9% [Saline Flush] Med 02/17/19 15:53 Active 10 ml FLUSH ASDIRECTED PRN Medication Orders Hydrocodone Bitart/Acetaminophen ([place] 325-5 Mg) 1 tab PO Q4H PRN PRN Reason: Pain (mild 1-3) Last Admin: 02/16/19 21:34 Dose: 1 tab Admin: 02/16/19 16:48 Dose: 1 tab Admin: 02/16/19 04:57 Dose: 1 tab Admin: 02/15/19 23:01 Dose: 1 tab Admin: 02/15/19 16:45 Dose: 1 tab Admin: 02/15/19 08:20 Dose: 1 tab Enoxaparin Sodium (Lovenox) 40 mg SUBCUT DAILY [facility] Last Admin: 02/18/19 08:43 Dose: 40 mg Admin: 02/17/19 08:26 Dose: 40 mg Admin: 02/16/19 09:08 Dose: 40 mg Admin: 02/15/19 11:40 Dose: 40 mg Ciprofloxacin/Dextrose 400 mg/ (Premix) 200 mls @ 200 mls/hr IV Q12H [facility] Last Admin: 02/18/19 00:41 Dose: 200 mls/hr Infusion: 02/17/19 14:16 Dose: 200 mls/hr Admin: 02/17/19 13:16 Dose: 200 mls/hr Infusion: 02/17/19 01:47 Dose: 200 mls/hr Admin: 02/17/19 00:47 Dose: 200 mls/hr Infusion: 02/16/19 14:10 Dose: 200 mls/hr Admin: 02/16/19 13:10 Dose: 200 mls/hr Infusion: 02/16/19 02:58 Dose: 200 mls/hr Admin: 02/16/19 01:58 Dose: 200 mls/hr Infusion: 02/15/19 15:39 Dose: 200 mls/hr Admin: 02/15/19 14:39 Dose: 200 mls/hr Infusion: 02/15/19 01:24 Dose: 200 mls/hr Admin: 02/15/19 00:24 Dose: 200 mls/hr Metronidazole 500 mg/ Premix 100 mls @ 100 mls/hr IV Q8H [facility] Last Admin: 02/18/19 05:57 Dose: 100 mls/hr Infusion: 02/17/19 22:38 Dose: 100 mls/hr Admin: 02/17/19 21:38 Dose: 100 mls/hr Infusion: 02/17/19 15:28 Dose: 100 mls/hr Admin: 02/17/19 14:28 Dose: 100 mls/hr Infusion: 02/17/19 07:28 Dose: 100 mls/hr Admin: 02/17/19 06:28 Dose: 100 mls/hr Infusion: 02/17/19 00:00 Dose: 100 mls/hr Admin: 02/16/19 23:00 Dose: 100 mls/hr Infusion: 02/16/19 15:12 Dose: 100 mls/hr Admin: 02/16/19 14:12 Dose: 100 mls/hr Infusion: 02/16/19 07:24 Dose: 100 mls/hr Admin: 02/16/19 06:24 Dose: 100 mls/hr Infusion: 02/15/19 23:57 Dose: 100 mls/hr Admin: 02/15/19 22:57 Dose: 100 mls/hr Infusion: 02/15/19 16:49 Dose: 100 mls/hr Admin: 02/15/19 15:49 Dose: 100 mls/hr Infusion: 02/15/19 06:15 Dose: 100 mls/hr Admin: 02/15/19 05:15 Dose: 100 mls/hr Infusion: 02/14/19 23:54 Dose: 100 mls/hr Admin: 02/14/19 22:54 Dose: 100 mls/hr Potassium Chloride/Dextrose/Sod Cl (D5 Ns With 20 Meq Kcl) 1,000 mls @ 125 mls/ hr IV ASDIRECTED [facility] Ketorolac Tromethamine (Toradol) 30 mg IVPUSH Q6H [facility] Stop: 02/19/19 21:46 Last Admin: 02/18/19 08:39 Dose: 30 mg Admin: 02/18/19 02:42 Dose: 30 mg Admin: 02/17/19 21:37 Dose: 30 mg Admin: 02/17/19 14:32 Dose: 30 mg Admin: 02/17/19 08:28 Dose: 30 mg Admin: 02/17/19 03:05 Dose: 30 mg Admin: 02/16/19 21:21 Dose: 30 mg Admin: 02/16/19 15:31 Dose: 30 mg Admin: 02/16/19 09:11 Dose: 30 mg Admin: 02/16/19 03:18 Dose: 30 mg Admin: 02/15/19 22:01 Dose: 30 mg Admin: 02/15/19 14:45 Dose: 30 mg Admin: 02/15/19 08:22 Dose: 30 mg Admin: 02/15/19 03:05 Dose: 30 mg Metoclopramide HCl (Reglan) 5 mg IVPUSH Q6H [facility] Last Admin: 02/18/19 05:58 Dose: 5 mg Admin: 02/18/19 00:40 Dose: 5 mg Ondansetron HCl (Zofran) 4 mg IVPUSH Q4H PRN PRN Reason: Nausea/Vomiting Last Admin: 02/17/19 13:38 Dose: 4 mg Sodium Chloride (Saline Flush) 10 ml FLUSH ASDIRECTED PRN PRN Reason: Keep Vein Open - Assessment Assessment (Free Text/Narrative):: Doing better, ilues resolving - Plan Plan (Free Text/Narrative):: Start liquids again
[2019-02-18] MEDS: Dextrose 5%-Lact Ringers w/KCl 1,000 ML IV SCH ×2 (11:40→21:50)
[2019-02-19] MEDS: Metoclopramide 10 MG/2 ML SDV IVPUSH SCH ×2 (00:19→06:14)
[2019-02-19] MEDS: Ciprofloxacin in D5W 400 MG in Premix Bag 1 BAG IV SCH ×2 (00:35)
[2019-02-19] MEDS: Ketorolac 30 MG/ML SDV IVPUSH SCH (03:21)
[2019-02-19] MEDS: metroNIDAZOLE/Normal Saline 500 MG in Premix Bag 1 BAG IV SCH (06:15)
--- NOTE | 2019-02-19 07:09 | PCM.SURGPN ---
- General Info Date of Service: 02/19/19 POD#: 5 Functional Status: Reports: Pain Controlled, Tolerating Diet, Ambulating, Urinating - Review of Systems General: Reports: No Symptoms Gastrointestinal: Reports: No Symptoms - Patient Data Vitals - Most Recent: Last Vital Signs Temp 97.4 F 02/19/19 00:28 Pulse 76 02/19/19 00:28 Resp 20 02/19/19 00:28 BP 128/76 02/19/19 00:28 Pulse Ox 96 02/19/19 00:28 Weight - Most Recent: 104.78 kg I&O - Last 24 Hours: Intake & Output 02/18/19 02/19/19 02/19/19 22:59 06:59 14:59 Intake Total 1550 350 Output Total 110 700 Balance 1440 -350 Med Orders - Current: Current Medications Hydrocodone Bitart/Acetaminophen ([place] 325-5 Mg) 1 tab PO Q4H PRN PRN Reason: Pain (mild 1-3) Last Admin: 02/16/19 21:34 Dose: 1 tab Amlodipine Besylate (Norvasc) 5 mg PO DAILY [facility] Enoxaparin Sodium (Lovenox) 40 mg SUBCUT DAILY [facility] Last Admin: 02/18/19 08:43 Dose: 40 mg Hydrochlorothiazide (Hydrochlorothiazide) 25 mg PO DAILY [facility] Potassium Cl/Dextrose/Lact Ringer's (D5 Lr With 20 Meq Kcl) 1,000 mls @ 100 mls /hr IV ASDIRECTED [facility] Last Admin: 02/18/19 21:50 Dose: 125 mls/hr Labetalol HCl (Normodyne) 200 mg PO BID [facility] Sodium Chloride (Saline Flush) 10 ml FLUSH ASDIRECTED PRN PRN Reason: Keep Vein Open Tamsulosin HCl (Flomax) 0.4 mg PO DAILY [facility] Discontinued Medications Lactated Ringer's (Ringers, Lactated) 1,000 mls @ 125 mls/hr IV ASDIRECTED [facility] Last Infusion: 02/16/19 08:55 Dose: 100 mls/hr Lactated Ringer's (Ringers, Lactated) 1,000 mls @ 125 mls/hr IV ASDIRECTED [facility] Last Admin: 02/18/19 05:00 Dose: 125 mls/hr Ciprofloxacin/Dextrose 400 mg/ (Premix) 200 mls @ 200 mls/hr IV Q12H [facility] Last Admin: 02/19/19 00:35 Dose: 200 mls/hr Metronidazole 500 mg/ Premix 100 mls @ 100 mls/hr IV Q8H [facility] Last Admin: 02/19/19 06:15 Dose: 100 mls/hr Promethazine HCl 12.5 mg/ (Sodium Chloride) 50.5 mls @ 200 mls/hr IV Q6H PRN PRN Reason: Nausea/Vomiting Last Admin: 02/17/19 02:53 Dose: 200 mls/hr Sodium Chloride (Normal Saline) 500 mls @ 250 mls/hr IV ONETIME ONE Stop: 02/17/19 04:25 Last Admin: 02/17/19 02:49 Dose: 250 mls/hr Potassium Chloride/Dextrose/Sod Cl (D5 Ns With 20 Meq Kcl) 1,000 mls @ 125 mls/ hr IV ASDIRECTED [facility] Ketorolac Tromethamine (Toradol) 30 mg IVPUSH ONETIME ONE Stop: 02/14/19 20:34 Last Admin: 02/14/19 20:40 Dose: 30 mg Ketorolac Tromethamine (Toradol) 30 mg IVPUSH Q6H [facility] Stop: 02/19/19 21:46 Last Admin: 02/19/19 03:21 Dose: 30 mg Lidocaine HCl (Glydo) Confirm Administered Dose 6 ml .ROUTE .STK-MED ONE Stop: 02/15/19 00:08 Last Admin: 02/14/19 23:40 Dose: 12 ml Lidocaine HCl (Xylocaine 2% Jelly) 6 ml MUCMEM ASDIRECTED [facility] Stop: 02/15/19 23:41 Metoclopramide HCl (Reglan) 10 mg IVPUSH Q6H [facility] Last Admin: 02/17/19 17:16 Dose: 10 mg Metoclopramide HCl (Reglan) 5 mg IVPUSH Q6H [facility] Last Admin: 02/19/19 06:14 Dose: 5 mg Morphine Sulfate (Morphine) 2 mg IVPUSH Q1H PRN PRN Reason: Abdominal Pain Last Admin: 02/15/19 20:31 Dose: 2 mg Morphine Sulfate (Morphine) 1 mg IVPUSH Q2H PRN PRN Reason: Abdominal Pain Last Admin: 02/17/19 05:03 Dose: 1 mg Ondansetron HCl (Zofran) 4 mg IVPUSH Q4H PRN PRN Reason: Nausea/Vomiting Last Admin: 02/17/19 13:38 Dose: 4 mg - Exam Wound/Incisions: Healing Well, Dressing Dry and Intact General: Other (Sleeping) - Problem List Review Problem List Initiated/Reviewed/Updated: Yes - My Orders Last 24 Hours: Active Orders 24 hr Category Date Time Status Low Fat, Low Chol, SARAH [Heart Healthy Diet] [DIET] Diet 02/19/19 Lunch Ordered Dextrose 5%-Lact Ringers w/KCl [D5 LR with 20 mEq KCl] Med 02/18/19 11:15 Active 1,000 ml IV ASDIRECTED Labetalol [Normodyne] Med 02/19/19 09:00 Ordered 200 mg PO BID Tamsulosin [Flomax] Med 02/19/19 09:00 Ordered 0.4 mg PO DAILY amLODIPine [Norvasc] Med 02/19/19 09:00 Ordered 5 mg PO DAILY hydroCHLOROthiazide Med 02/19/19 09:00 Ordered 25 mg PO DAILY Medication Orders Hydrocodone Bitart/Acetaminophen ([place] 325-5 Mg) 1 tab PO Q4H PRN PRN Reason: Pain (mild 1-3) Last Admin: 02/16/19 21:34 Dose: 1 tab Admin: 02/16/19 16:48 Dose: 1 tab Admin: 02/16/19 04:57 Dose: 1 tab Admin: 02/15/19 23:01 Dose: 1 tab Admin: 02/15/19 16:45 Dose: 1 tab Admin: 02/15/19 08:20 Dose: 1 tab Amlodipine Besylate (Norvasc) 5 mg PO DAILY [facility] Enoxaparin Sodium (Lovenox) 40 mg SUBCUT DAILY [facility] Last Admin: 02/18/19 08:43 Dose: 40 mg Admin: 02/17/19 08:26 Dose: 40 mg Admin: 02/16/19 09:08 Dose: 40 mg Admin: 02/15/19 11:40 Dose: 40 mg Hydrochlorothiazide (Hydrochlorothiazide) 25 mg PO DAILY [facility] Potassium Cl/Dextrose/Lact Ringer's (D5 Lr With 20 Meq Kcl) 1,000 mls @ 100 mls /hr IV ASDIRECTED [facility] Last Admin: 02/18/19 21:50 Dose: 125 mls/hr Infusion: 02/18/19 19:40 Dose: 125 mls/hr Admin: 02/18/19 11:40 Dose: 125 mls/hr Labetalol HCl (Normodyne) 200 mg PO BID [facility] Sodium Chloride (Saline Flush) 10 ml FLUSH ASDIRECTED PRN PRN Reason: Keep Vein Open Tamsulosin HCl (Flomax) 0.4 mg PO DAILY [facility] - Assessment Assessment (Free Text/Narrative):: Doing well, tolerating liquids - Plan Plan (Free Text/Narrative):: Adv diet D/C antibiotics Restart BP meds
[2019-02-19] MEDS: Dextrose 5%-Lact Ringers w/KCl 1,000 ML IV SCH ×2 (09:23→19:24)
[2019-02-19] MEDS: Tamsulosin 0.4 MG Cap.ER PO SCH (09:37)
[2019-02-19] MEDS: Enoxaparin 40 MG/0.4 ML Syringe SUBCUT SCH (09:37)
[2019-02-19] MEDS: amLODIPine 5 MG Tab PO SCH (09:38)
[2019-02-19] MEDS: Labetalol 200 MG Tab PO SCH ×2 (09:39→21:49)
[2019-02-19] MEDS: Hydrochlorothiazide 25 MG Tab PO SCH (09:39)
[2019-02-20] MEDS: Dextrose 5%-Lact Ringers w/KCl 1,000 ML IV SCH (04:29)
[2019-02-20] MEDS: Hydrochlorothiazide 25 MG Tab PO SCH (09:20)
[2019-02-20] MEDS: Labetalol 200 MG Tab PO SCH (09:20)
[2019-02-20] MEDS: amLODIPine 5 MG Tab PO SCH (09:20)
[2019-02-20] MEDS: Tamsulosin 0.4 MG Cap.ER PO SCH (09:20)
[2019-02-20] MEDS: Enoxaparin 40 MG/0.4 ML Syringe SUBCUT SCH (09:21)
--- NOTE | 2019-02-20 09:48 | PCM.DCSUM1 ---
Discharge Summary - Hospital Course Free Text/Narrative:: Admitted 6 days ago for cholecystectomy, attempted lap converted to open. Brief History: Post op patient had ileus with nausea and vomitting. This resolved and is now toleraing diet. Stool are still loose but improving. Incision healing well, drain removed. Diagnosis: Stroke: No - Discharge Data Discharge Date: 02/20/19 Discharge Disposition: Home, Self-Care 01 Condition: Good - Patient Summary/Data Operative Procedure(s) Performed: Lap to Open Josi - Patient Instructions Diet, Other: low fat diet for 1 week Activity: No Strenuous Activities (for 4 weeks) Driving, Other: May drive when ready Showering/Bathing: May Shower Wound/Incision Care: Keep Operative Site/Wound Site Clean and Dry - Discharge Plan Home Medications: Home Meds Carboxymethylcellulose Sodium [Refresh Tears 0.5%] 1 drop EYEBOTH BID 02/21/18 [ History] Labetalol HCl [Labetalol] 200 mg PO BID 02/21/18 [History] Multivitamin [One Daily] 1 ea PO DAILY 02/21/18 [History] Omeprazole Magnesium [Prilosec Otc] 20 mg PO ACBREAKFAST 02/21/18 [History] Tamsulosin [Flomax] 0.4 mg PO DAILY 02/21/18 [History] amLODIPine Besylate [Norvasc] 5 mg PO DAILY 02/21/18 [History] hydroCHLOROthiazide [Hydrochlorothiazide] 25 mg PO DAILY 02/21/18 [History] Acetaminophen 1,000 mg PO Q8H PRN 02/13/19 [History] Aspirin [Adult Low Dose Aspirin EC] 1 tab PO ASDIRECTED 02/13/19 [History] Isosorbide Mononitrate [Isosorbide Mononitrate ER] 30 mg PO DAILY 02/13/19 [ History] Nitroglycerin [Nitrostat] 0.4 mg PO Q5M PRN 02/13/19 [History] Richards Concentrate Cap 1 cap PO DAILY 02/14/19 [History] Labetalol [Normodyne] 200 mg PO BID tablet 02/20/19 [Rx] Tamsulosin [Flomax] 0.4 mg PO DAILY cap.er 02/20/19 [Rx] amLODIPine [Norvasc] 5 mg PO DAILY tablet 02/20/19 [Rx] hydroCHLOROthiazide [Hydrochlorothiazide] 25 mg PO DAILY tablet 02/20/19 [Rx] Patient Handouts: Venous Thromboembolism Prevention Referrals: Jonah Smith MD [Physician] - (f/u in 1 week for staple removal) - Discharge Summary/Plan Comment DC Time >30 min.: No - Patient Data Vitals - Most Recent: Last Vital Signs Temp 98.9 F 02/20/19 08:00 Pulse 67 02/20/19 09:20 Resp 22 H 02/20/19 08:00 BP 124/61 02/20/19 09:20 Pulse Ox 97 02/20/19 08:00 Weight - Most Recent: 104.78 kg I&O - Last 24 hours: Intake & Output 02/19/19 02/20/19 02/20/19 22:59 06:59 14:59 Intake Total 975 1066 Output Total 530 450 Balance 445 616 TYLER Results - Last 24 hrs: Microbiology 02/14/19 12:20 Gram Stain - Final Gallbladder Routine Culture - Final Gram Positive Cocci Med Orders - Current: Current Medications Hydrocodone Bitart/Acetaminophen ([place] 325-5 Mg) 1 tab PO Q4H PRN PRN Reason: Pain (mild 1-3) Last Admin: 02/16/19 21:34 Dose: 1 tab Amlodipine Besylate (Norvasc) 5 mg PO DAILY [facility] Last Admin: 02/20/19 09:20 Dose: 5 mg Enoxaparin Sodium (Lovenox) 40 mg SUBCUT DAILY [facility] Last Admin: 02/20/19 09:21 Dose: 40 mg Hydrochlorothiazide (Hydrochlorothiazide) 25 mg PO DAILY [facility] Last Admin: 02/20/19 09:20 Dose: 25 mg Potassium Cl/Dextrose/Lact Ringer's (D5 Lr With 20 Meq Kcl) 1,000 mls @ 100 mls /hr IV Q10H [facility] Last Admin: 02/20/19 04:29 Dose: 100 mls/hr Labetalol HCl (Normodyne) 200 mg PO BID [facility] Last Admin: 02/20/19 09:20 Dose: 200 mg Sodium Chloride (Saline Flush) 10 ml FLUSH ASDIRECTED PRN PRN Reason: Keep Vein Open Tamsulosin HCl (Flomax) 0.4 mg PO DAILY [facility] Last Admin: 02/20/19 09:20 Dose: 0.4 mg Discontinued Medications Lactated Ringer's (Ringers, Lactated) 1,000 mls @ 125 mls/hr IV ASDIRECTED [facility] Last Infusion: 02/16/19 08:55 Dose: 100 mls/hr Lactated Ringer's (Ringers, Lactated) 1,000 mls @ 125 mls/hr IV ASDIRECTED [facility] Last Admin: 02/18/19 05:00 Dose: 125 mls/hr Ciprofloxacin/Dextrose 400 mg/ (Premix) 200 mls @ 200 mls/hr IV Q12H [facility] Last Admin: 02/19/19 00:35 Dose: 200 mls/hr Metronidazole 500 mg/ Premix 100 mls @ 100 mls/hr IV Q8H [facility] Last Admin: 02/19/19 06:15 Dose: 100 mls/hr Promethazine HCl 12.5 mg/ (Sodium Chloride) 50.5 mls @ 200 mls/hr IV Q6H PRN PRN Reason: Nausea/Vomiting Last Admin: 02/17/19 02:53 Dose: 200 mls/hr Sodium Chloride (Normal Saline) 500 mls @ 250 mls/hr IV ONETIME ONE Stop: 02/17/19 04:25 Last Admin: 02/17/19 02:49 Dose: 250 mls/hr Potassium Chloride/Dextrose/Sod Cl (D5 Ns With 20 Meq Kcl) 1,000 mls @ 125 mls/ hr IV ASDIRECTED [facility] Potassium Cl/Dextrose/Lact Ringer's (D5 Lr With 20 Meq Kcl) 1,000 mls @ 100 mls /hr IV ASDIRECTED [facility] Stop: 02/19/19 09:29 Last Infusion: 02/19/19 07:35 Dose: Infused Ketorolac Tromethamine (Toradol) 30 mg IVPUSH ONETIME ONE Stop: 02/14/19 20:34 Last Admin: 02/14/19 20:40 Dose: 30 mg Ketorolac Tromethamine (Toradol) 30 mg IVPUSH Q6H [facility] Stop: 02/19/19 21:46 Last Admin: 02/19/19 03:21 Dose: 30 mg Lidocaine HCl (Glydo) Confirm Administered Dose 6 ml .ROUTE .STK-MED ONE Stop: 02/15/19 00:08 Last Admin: 02/14/19 23:40 Dose: 12 ml Lidocaine HCl (Xylocaine 2% Jelly) 6 ml MUCMEM ASDIRECTED [facility] Stop: 02/15/19 23:41 Metoclopramide HCl (Reglan) 10 mg IVPUSH Q6H [facility] Last Admin: 02/17/19 17:16 Dose: 10 mg Metoclopramide HCl (Reglan) 5 mg IVPUSH Q6H [facility] Last Admin: 02/19/19 06:14 Dose: 5 mg Morphine Sulfate (Morphine) 2 mg IVPUSH Q1H PRN PRN Reason: Abdominal Pain Last Admin: 02/15/19 20:31 Dose: 2 mg Morphine Sulfate (Morphine) 1 mg IVPUSH Q2H PRN PRN Reason: Abdominal Pain Last Admin: 02/17/19 05:03 Dose: 1 mg Ondansetron HCl (Zofran) 4 mg IVPUSH Q4H PRN PRN Reason: Nausea/Vomiting Last Admin: 02/17/19 13:38 Dose: 4 mg
--- NOTE | 2019-02-20 09:49 | PCM.SURGPN ---
- General Info Date of Service: 02/20/19 POD#: 6 Functional Status: Reports: Pain Controlled, Tolerating Diet, Ambulating, Urinating - Review of Systems General: Reports: No Symptoms Gastrointestinal: Reports: No Symptoms - Patient Data Vitals - Most Recent: Last Vital Signs Temp 98.9 F 02/20/19 08:00 Pulse 67 02/20/19 09:20 Resp 22 H 02/20/19 08:00 BP 124/61 02/20/19 09:20 Pulse Ox 97 02/20/19 08:00 Weight - Most Recent: 104.78 kg I&O - Last 24 Hours: Intake & Output 02/19/19 02/20/19 02/20/19 22:59 06:59 14:59 Intake Total 975 1066 Output Total 530 450 Balance 445 616 Lei Results Last 24 Hrs: Microbiology 02/14/19 12:20 Gram Stain - Final Gallbladder Routine Culture - Final Gram Positive Cocci Med Orders - Current: Current Medications Hydrocodone Bitart/Acetaminophen ([place] 325-5 Mg) 1 tab PO Q4H PRN PRN Reason: Pain (mild 1-3) Last Admin: 02/16/19 21:34 Dose: 1 tab Amlodipine Besylate (Norvasc) 5 mg PO DAILY [facility] Last Admin: 02/20/19 09:20 Dose: 5 mg Enoxaparin Sodium (Lovenox) 40 mg SUBCUT DAILY [facility] Last Admin: 02/20/19 09:21 Dose: 40 mg Hydrochlorothiazide (Hydrochlorothiazide) 25 mg PO DAILY [facility] Last Admin: 02/20/19 09:20 Dose: 25 mg Potassium Cl/Dextrose/Lact Ringer's (D5 Lr With 20 Meq Kcl) 1,000 mls @ 100 mls /hr IV Q10H [facility] Last Admin: 02/20/19 04:29 Dose: 100 mls/hr Labetalol HCl (Normodyne) 200 mg PO BID [facility] Last Admin: 02/20/19 09:20 Dose: 200 mg Sodium Chloride (Saline Flush) 10 ml FLUSH ASDIRECTED PRN PRN Reason: Keep Vein Open Tamsulosin HCl (Flomax) 0.4 mg PO DAILY [facility] Last Admin: 02/20/19 09:20 Dose: 0.4 mg Discontinued Medications Lactated Ringer's (Ringers, Lactated) 1,000 mls @ 125 mls/hr IV ASDIRECTED [facility] Last Infusion: 02/16/19 08:55 Dose: 100 mls/hr Lactated Ringer's (Ringers, Lactated) 1,000 mls @ 125 mls/hr IV ASDIRECTED [facility] Last Admin: 02/18/19 05:00 Dose: 125 mls/hr Ciprofloxacin/Dextrose 400 mg/ (Premix) 200 mls @ 200 mls/hr IV Q12H [facility] Last Admin: 02/19/19 00:35 Dose: 200 mls/hr Metronidazole 500 mg/ Premix 100 mls @ 100 mls/hr IV Q8H [facility] Last Admin: 02/19/19 06:15 Dose: 100 mls/hr Promethazine HCl 12.5 mg/ (Sodium Chloride) 50.5 mls @ 200 mls/hr IV Q6H PRN PRN Reason: Nausea/Vomiting Last Admin: 02/17/19 02:53 Dose: 200 mls/hr Sodium Chloride (Normal Saline) 500 mls @ 250 mls/hr IV ONETIME ONE Stop: 02/17/19 04:25 Last Admin: 02/17/19 02:49 Dose: 250 mls/hr Potassium Chloride/Dextrose/Sod Cl (D5 Ns With 20 Meq Kcl) 1,000 mls @ 125 mls/ hr IV ASDIRECTED [facility] Potassium Cl/Dextrose/Lact Ringer's (D5 Lr With 20 Meq Kcl) 1,000 mls @ 100 mls /hr IV ASDIRECTED [facility] Stop: 02/19/19 09:29 Last Infusion: 02/19/19 07:35 Dose: Infused Ketorolac Tromethamine (Toradol) 30 mg IVPUSH ONETIME ONE Stop: 02/14/19 20:34 Last Admin: 02/14/19 20:40 Dose: 30 mg Ketorolac Tromethamine (Toradol) 30 mg IVPUSH Q6H [facility] Stop: 02/19/19 21:46 Last Admin: 02/19/19 03:21 Dose: 30 mg Lidocaine HCl (Glydo) Confirm Administered Dose 6 ml .ROUTE .STK-MED ONE Stop: 02/15/19 00:08 Last Admin: 02/14/19 23:40 Dose: 12 ml Lidocaine HCl (Xylocaine 2% Jelly) 6 ml MUCMEM ASDIRECTED [facility] Stop: 02/15/19 23:41 Metoclopramide HCl (Reglan) 10 mg IVPUSH Q6H [facility] Last Admin: 02/17/19 17:16 Dose: 10 mg Metoclopramide HCl (Reglan) 5 mg IVPUSH Q6H [facility] Last Admin: 02/19/19 06:14 Dose: 5 mg Morphine Sulfate (Morphine) 2 mg IVPUSH Q1H PRN PRN Reason: Abdominal Pain Last Admin: 02/15/19 20:31 Dose: 2 mg Morphine Sulfate (Morphine) 1 mg IVPUSH Q2H PRN PRN Reason: Abdominal Pain Last Admin: 02/17/19 05:03 Dose: 1 mg Ondansetron HCl (Zofran) 4 mg IVPUSH Q4H PRN PRN Reason: Nausea/Vomiting Last Admin: 02/17/19 13:38 Dose: 4 mg - Exam Wound/Incisions: Healing Well, Dressing Dry and Intact, Other (Minimal serous DORA drain output, this was removed by me.) - Problem List Review Problem List Initiated/Reviewed/Updated: Yes - My Orders Last 24 Hours: Active Orders 24 hr Category Date Time Status Ready for Discharge [RC] PER UNIT ROUTINE Care 02/20/19 09:43 Ordered Low Fat, Low Chol, SARAH [Heart Healthy Diet] [DIET] Diet 02/19/19 Lunch Active Dextrose 5%-Lact Ringers w/KCl [D5 LR with 20 mEq KCl] Med 02/19/19 09:30 Active 1,000 ml IV Q10H Labetalol [Normodyne] Med 02/19/19 09:00 Active 200 mg PO BID Tamsulosin [Flomax] Med 02/19/19 09:00 Active 0.4 mg PO DAILY amLODIPine [Norvasc] Med 02/19/19 09:00 Active 5 mg PO DAILY hydroCHLOROthiazide Med 02/19/19 09:00 Active 25 mg PO DAILY Medication Orders Hydrocodone Bitart/Acetaminophen ([place] 325-5 Mg) 1 tab PO Q4H PRN PRN Reason: Pain (mild 1-3) Last Admin: 02/16/19 21:34 Dose: 1 tab Admin: 02/16/19 16:48 Dose: 1 tab Admin: 02/16/19 04:57 Dose: 1 tab Admin: 02/15/19 23:01 Dose: 1 tab Admin: 02/15/19 16:45 Dose: 1 tab Admin: 02/15/19 08:20 Dose: 1 tab Amlodipine Besylate (Norvasc) 5 mg PO DAILY [facility] Last Admin: 02/20/19 09:20 Dose: 5 mg Admin: 02/19/19 09:38 Dose: 5 mg Enoxaparin Sodium (Lovenox) 40 mg SUBCUT DAILY [facility] Last Admin: 02/20/19 09:21 Dose: 40 mg Admin: 02/19/19 09:37 Dose: 40 mg Admin: 02/18/19 08:43 Dose: 40 mg Admin: 02/17/19 08:26 Dose: 40 mg Admin: 02/16/19 09:08 Dose: 40 mg Admin: 02/15/19 11:40 Dose: 40 mg Hydrochlorothiazide (Hydrochlorothiazide) 25 mg PO DAILY [facility] Last Admin: 02/20/19 09:20 Dose: 25 mg Admin: 02/19/19 09:39 Dose: 25 mg Potassium Cl/Dextrose/Lact Ringer's (D5 Lr With 20 Meq Kcl) 1,000 mls @ 100 mls /hr IV Q10H [facility] Last Admin: 02/20/19 04:29 Dose: 100 mls/hr Infusion: 02/20/19 04:29 Dose: 100 mls/hr Admin: 02/19/19 19:24 Dose: 100 mls/hr Infusion: 02/19/19 19:23 Dose: 100 mls/hr Admin: 02/19/19 09:23 Dose: 100 mls/hr Labetalol HCl (Normodyne) 200 mg PO BID [facility] Last Admin: 02/20/19 09:20 Dose: 200 mg Admin: 02/19/19 21:49 Dose: 200 mg Admin: 02/19/19 09:39 Dose: 200 mg Sodium Chloride (Saline Flush) 10 ml FLUSH ASDIRECTED PRN PRN Reason: Keep Vein Open Tamsulosin HCl (Flomax) 0.4 mg PO DAILY [facility] Last Admin: 02/20/19 09:20 Dose: 0.4 mg Admin: 02/19/19 09:37 Dose: 0.4 mg - Assessment Assessment (Free Text/Narrative):: Doing well - Plan Plan (Free Text/Narrative):: Discharge to home
== END 2019-02-20 13:40 | disposition home or self-care (01) | DRG 415 ==
LOC: FB.SDS 09:52 → FB.MS 14:25
PROVIDERS: ADMIT Surgery; ATTEND Family Medicine
PROC: 0FT40ZZ Resection of Gallbladder, Open Approach (ICD-10-PCS; principal; 2019-02-14)
PROC: 0FJ44ZZ Inspection of Gallbladder, Percutaneous Endoscopic Approach (ICD-10-PCS; 2019-02-14)
PROC: 0DNU0ZZ Release Omentum, Open Approach (ICD-10-PCS; 2019-02-14)
PROC: 0DNW0ZZ Release Peritoneum, Open Approach (ICD-10-PCS; 2019-02-14)
PROC: 0F9 Hepatobiliary System and Pancreas, Drainage (ICD-10-PCS; 2019-02-14)
DX: K80.00 Calculus of gallbladder with acute cholecystitis without obstruction (principal); K56.7 Ileus, unspecified; I10 Essential (primary) hypertension; K21.9 Gastro-esophageal reflux disease without esophagitis; R10.84 Generalized abdominal pain; R68.81 Early satiety; M19.90 Unspecified osteoarthritis, unspecified site; K66.0 Peritoneal adhesions (postprocedural) (postinfection); Z85.828 Personal history of other malignant neoplasm of skin; N40.1 Benign prostatic hyperplasia with lower urinary tract symptoms; R33.8 Other retention of urine; Z79.82 Long term (current) use of aspirin; Z88.0 Allergy status to penicillin
CPT/HCPCS: 47600; 87070; 87075; 87077; 87205; J7120; 36415; 51701; 80053; 85025; 88304; 94150; A9270-GY; C9399; J0131; J0330; J0690; J0744; J1170; J1650; J1885; J2250; J2270; J2405; J2550; J2704; J2710; J2765; J3010; J3480; J3490; J7040; J7050

== ENCOUNTER 2025-09-27 15:21 | Emergency (ER) | payer MEDICARE, BC ==
[2025-09-27 17:10] LABS: BASOPHILS ABSOLUTE AUTO 0.0 x10-3/uL (0.0-0.3); BASOPHILS PERCENT AUTO 0.5 % (0.3-3.8); EOSINOPHILS ABSOLUTE AUTO 0.0 x10-3/uL (0.0-0.6); EOSINOPHILS PERCENT AUTO 0.7 % (0.1-6.8); LYMPHOCYTES ABSOLUTE AUTO 1.6 x10-3/uL (0.5-4.5); LYMPHOCYTES PERCENT AUTO 28.9 % (15.8-45.3); MEAN PLATELET VOLUME 8.9 fL (6.7-11.0); MONOCYTES ABSOLUTE AUTO 0.7 x10-3/uL (0.0-1.2); MONOCYTES PERCENT AUTO 12.7 % (5.5-15.2); NEUTROPHILS ABSOLUTE AUTO 3.1 x10-3/uL (1.7-6.9); NEUTROPHILS PERCENT AUTO 57.2 % (40.3-71.8); PLATELET COUNT,PLT 125 x10(3)uL (117-477); RED BLOOD CELL COUNT 3.79 x10(6)uL (3.90-5.90); RED CELL DISTRIBUTION WIDTH 13.6 % (12.4-15.0); WHITE BLOOD CELL COUNT,WBC 5.4 x10-3/uL (3.2-10.1)
[2025-09-27 17:13] LABS: BLOOD UREA NITROGEN,BUN 19 mg/dL (7-18); CARBON DIOXIDE,CO2 26 mmol/L (21-32); CHLORIDE,CL 105 mmol/L (100-110); CREATININE 1.1 mg/dL (0.70-1.30); EST CRCL DRUG DOSING (CG) 49.97 mL/min; ESTIMATED GFR 64 mL/min (>60); GLUCOSE RANDOM 104 mg/dL (80-116); POTASSIUM,K 4.0 mmol/L (3.5-5.3); SODIUM,NA 142 mmol/L (135-145)
[2025-09-27 17:20] LABS: A/G RATIO 1.2; ALANINE AMINOTRANSFERASE,ALT 24 U/L (12-36); ASPARTATE AMNIOTRANSFERASE,AST 25 IU/L (5-25); BILIRUBIN TOTAL 0.9 mg/dL (0.1-1.3); CREATINE KINASE,CK 256 IU/L (60-160); PROTEIN TOTAL,TP 7.1 g/dL (6.0-8.0)
== END 2025-09-27 20:26 | disposition home or self-care (01) ==
LOC: FB.ED 15:21
DX: S82.831A Other fracture of upper and lower end of right fibula, initial encounter for closed fracture (principal); I48.91 Unspecified atrial fibrillation; E78.00 Pure hypercholesterolemia, unspecified; I10 Essential (primary) hypertension; K21.9 Gastro-esophageal reflux disease without esophagitis; Z88.0 Allergy status to penicillin; Z79.899 Other long term (current) drug therapy; Z79.82 Long term (current) use of aspirin; Z87.891 Personal history of nicotine dependence; W00.0XXA Fall on same level due to ice and snow, initial encounter
CPT/HCPCS: 36415; 73630-RT; 80053; 82550; 85025; 93005; 93010; 99284